=== PATIENT | female | born 1960 | race Caucasian/White ===

== ENCOUNTER 2016-08-29 17:20 | Emergency (ER) | payer OTHER, MEDICAID ==
--- NOTE | 2016-08-29 17:08 | EDPHY ---
H & P Constitutional: Initial Vital Signs Temperature (C) 36.7 C 08/29/16 17:28 Heart Rate 76 08/29/16 17:28 Respiratory Rate 20 08/29/16 17:28 Blood Pressure 133/86 H 08/29/16 17:28 O2 Sat (%) 95 08/29/16 17:28 O2 Delivery Mode Room Air Allergies/Adverse Reactions: amantadine HCl [From Symmetrel] Allergy (Verified 05/05/16 06:37) baclofen [Baclofen] Allergy (Verified 05/05/16 06:37) codeine [Codeine] Allergy (Verified 05/05/16 06:37) Penicillins Allergy (Verified 05/05/16 06:37) phenytoin sodium [From Dilantin] Allergy (Verified 05/05/16 06:37) phenytoin sodium extended [From Dilantin] Allergy (Verified 05/05/16 06:37) piperacillin sodium [From Zosyn] Allergy (Verified 05/05/16 06:37) rimantadine HCl [From Flumadine] Allergy (Verified 05/05/16 06:37) tazobactam sodium [From Zosyn] Allergy (Verified 05/05/16 06:37) Home Medications: Medication Instructions Recorded Calcium Polycarbophil [FIBERCON] 625 mg TUBE HS 05/10/15 Cholecalciferol Vit D3 [Vitamin D3 50,000 unit TUBE Q15D 05/10/15 (*)] Herbals/Supplements -Info Only 1 ea PO DAILY 05/10/15 Hydrocodone/Acetaminophen [[place] 0.5 tab TUBE ,19 05/10/15 5/325 (*)] Hydrocodone/Acetaminophen [[place] 1 tab TUBE DAILY 05/10/15 5/325 (*)] Metoprolol Tartrate [Lopressor 25 25 mg TUBE BID 05/10/15 mg (*)] Omeprazole [Prilosec 20 mg] 20 mg TUBE DAILY 05/10/15 carBAMazepine [TEGretol (*)] 100 mg TUBE 08,12 05/10/15 carBAMazepine [TEGretol (*)] 200 mg TUBE HS 05/10/15 clonazePAM [Klonopin (*)] 0.25 mg TUBE Q12 05/10/15 traZODone [traZODONE 50MG (*)] 50 mg TUBE HS PRN 05/10/15 Acetic Acid Irr Soln 0.25% 60 ml IRR MWF 10/20/15 Bisacodyl [Dulcolax] 10 mg RC DAILY PRN 10/20/15 Mag Hydrox/Al Hydrox/Simeth 30 ml TUBE TID PRN 10/20/15 [Maalox Maximum Strength Suspension] Magnesium Hydroxide [Milk of 30 ml PO DAILY PRN 10/20/15 Magnesia (*)] Menthol [Icy Hot Naturals] 1 tremaine TP PRN PRN 10/20/15 Prochlorperazine Maleate 10 mg TUBE Q6 PRN 10/20/15 [Compazine 10mg (*)] Prochlorperazine Maleate 25 mg [place] Q12 PRN 10/20/15 [Compazine 25mg supp (*)] Rizatriptan Benzoate [Rizatriptan] 10 mg TUBE Q2 PRN 10/20/15 flavoxATE HCL [Urispas] 100 mg TUBE TID 10/20/15 Acetaminophen [Tylenol 325mg (*)] 650 mg TUBE Q4 PRN #0 tab 10/23/15 levOFLOXACIN [levAQUIN] 750 mg TUBE DAILY #4 tab 10/23/15 Medical Decision Making ED Course/Re-evaluation: CHIEF COMPLAINT: Feeding tube malfunction. HISTORY OF PRESENT ILLNESS: The patient is a 56-year-old female presenting via EMS as her feeding tube has not been working since this morning. Staff at her living facility attempted unsuccessfully to unclog it and get it working. She admits having abdominal pain. She denies vomiting, diarrhea, fever, or other complaints at this time. REVIEW OF SYSTEMS: A 10 point review of systems was performed and is negative with the exception of the elements mentioned in the history of present illness. PHYSICAL EXAM: HR, BP, O2 Sat, RR. Temp noted General Appearance: Alert, well hydrated, appropriate, and non-toxic appearing. Head: Atraumatic without scalp tenderness or obvious injury Eyes: Pupils equal, round, reactive to light and accommodation, EOMI, no trauma , no injection. Ears: Clear bilaterally, no perforation, normal landmarks Nose: Atraumatic, no rhinorrhea, clear. Throat: There is no erythema or exudates, no lesions, normal tonsils, mucus membranes moist. Neck: Supple, 2+ carotid upstroke, nontender, no lymphadenopathy. Respiratory: No retractions, no distress, no wheezes, and no accessory muscle use. Lungs are clear to auscultation bilaterally. Cardiovascular: Regular rate and rhythm, no murmurs, rubs, or gallops. Bilateral carotid, radial, dorsalis pedis, and posterior tibial pulses intact. Good capillary refill all extremities. Gastrointestinal: Abdomen is soft, nontender, non-distended, no masses, no rebound, no guarding, no peritoneal signs. Feeding tube in place but not working. Musculoskeletal: Normal active ROM of all extremities, atraumatic. Neurological: Alert, appropriate, and interactive. The patient has normal DTRs and non-focal cranial nerves, motor, sensory, and cerebellar exam. Skin: No rashes, good turgor, no nodules on palpation. Past medical history:Feeding tube, hemorrhagic stroke at time of , seizure disorder. Past surgical history:Denies. Family history:Non-contributory. Social history:Lives at [facility]. DIAGNOSTICS/PROCEDURES/CRITICAL CARE TIME: DIFFERENTIAL DIAGNOSIS: MEDICAL DECISION MAKIN-year-old female presents for feeding tube malfunction. It appears to be blocked and staff at [facility] were unable to unclog it. She is complaining of generalized abdominal pain but has no other complaints. The nurse will attempt to fix the tube and she will be discharged back to her facility. 1840: No progress has been made in unplugging the tube. We will replace the whole tube. 1942: Tube has been successfully replaced. She will be discharged back to [facility]. Departure - Departure Disposition: Home, Routine, Self-Care Clinical Impression: Feeding tube blocked Qualifiers: Encounter type: initial encounter Qualified Code(s): T85.598A - Other mechanical complication of other gastrointestinal prosthetic devices, implants and grafts, initial encounter Condition: Good Instructions: How to Use and Care for Your PEG Tube (ED) Additional Instructions: Return for any other complications with your feeding tube. Referrals: Patient,NotPresent [Unknown] - As per Instructions Report Scribed for: Iron [facility] Report Scribed by: Jani Bingham Date of Report: 08/29/16 Time of Report: 17:30
[2016-08-29 17:30] VITALS: PULSE 76; RESP 20; TEMP 98.1
[2016-08-29 20:45] VITALS: BP 124/80; O2SAT 96
== END 2016-08-29 20:45 | disposition home or self-care (01) ==
LOC: EDUNIT#
DX: T85.598A Other mechanical complication of other gastrointestinal prosthetic devices, implants and grafts, initial encounter (principal); Y73.2 Prosthetic and other implants, materials and accessory gastroenterology and urology devices associated with adverse incidents

== ENCOUNTER 2016-09-17 11:13 | Inpatient (IN) | payer OTHER, MEDICAID ==
--- NOTE | 2016-09-17 11:49 | EDPHY ---
General - History Smoking Status: Never smoked Narrative: CHIEF COMPLAINT: Unable to remove Yao catheter HISTORY OF PRESENT ILLNESS: Patient says that she was sent here because they could not remove her suprapubic catheter today. She has an chronic suprapubic catheter due to neurogenic bladder. It has been in place chronically, as patient says "forever." It is changed monthly. They are unable to do so today and sent her here. She does not know the details of this and there is no documentation of this that they sent with her. She has minimal suprapubic pain. No generalized abdominal pain. No flank pain. No nausea or vomiting. REVIEW OF SYSTEMS: Ten systems reviewed and are negative unless otherwise noted in the HPI PERTINENT MEDICAL HISTORY: Neurogenic bladder and bowel EXAMINATION General Appearance: Alert, no distress Head: normocephalic, atraumatic Eyes: Pupils equal and round, no conjunctival pallor or injection ENT, Mouth: Mucous membranes moist Neck: Normal inspection, supple, non-tender Respiratory: Lungs are clear to auscultation. No wheezing, rhonchi or crackles. Cardiovascular: Regular rate and rhythm. No murmur. Gastrointestinal: Abdomen is soft and nontender. No fullness. No tympany rigidity. No flank pain. Suprapubic catheter with foul-smelling urine and purulence in the tube. No surrounding erythema. Neurological: A&O, bilateral contractures of the upper extremities. Chronic weakness of the right lower extremity. Skin: Warm and dry, no rash Extremities: Nontender. Contractures of upper extremities. Psychiatric: Mood and affect normal DIFFERENTIAL DIAGNOSES: Including but not limited to neurogenic bladder, chronic indwelling catheter, catheter dysfunction, MDM: 11:45 a.m. Patient reports that she has been [facility] due to inability to remove her suprapubic catheter. She has history of previous AVM with subsequent hemorrhage and neurogenic bladder. Suprapubic catheter is changed monthly. They were unable to do so today and sent her here. She has some mild suprapubic discomfort. No nausea or vomiting. No generalized abdominal pain. 12:05 p.m. Bladder scan shows only 45 miles. There is a strong odor about the urine. There is some purulence in the super pubic catheter. No surrounding erythema. No tenderness to palpation. Benign abdominal examination. 12:40 p.m. Notified by RN that the attempt of the suprapubic catheter have failed thus far. They suspected common of the vagina. I will assist them to determine the location of point of exit. 1:10 p.m. I personally watched the 3rd attempt of placing the suprapubic catheter. The catheter was successfully placed with good return of urine. Balloon was inflated without complication. There was no extrusion from the vagina. The catheter was then irrigated with sterile saline 40 cc which returned in the catheter bag. I then contacted the radiologist to discuss verification of placement. Dr. Farr recommended that we send the patient to IR to perform a limited cystogram to verify placement. This has been ordered. She remains stable, with no abdominal pain and in no acute distress. 2:15 p.m. Case discussed with Dr. Aguirre. The patient has been checked out to her. Please see her note for final disposition. Still awaiting the read on the cystogram. SUPERVISION: This patient was independently evaluated without direct examination by the attending physician. Case was discussed with attending physician. Case discussed with Dr. Ball (Medardo Scott) Discussion: I assumed care of this patient from MARK Sanchez, at 3:00 p.m.. We are awaiting the results of the patient's limited cystogram. Cystogram called to me by Dr. Farr. He reports that when he instilled fluid into the suprapubic catheter, patient reported that "I'm urinating" and seemed to pass fluid from her urethra. Given the fact that there was concern earlier that suprapubic catheter protruded from the patient's vagina, CT scan was ordered. CT scan was reported to me by Dr. Metzger as showing that the suprapubic catheter is in the bladder, however, when contrast is instilled contrast passes into the vagina and onto the patient's gurney. I reviewed the patient's records and discuss the patient's course with the PA from [facility], Grecia Hayward. It is unclear to me whether this vesicovaginal fistula is pre-existing. I spoke to the patient's nurse at [facility] who reports that the patient does wear depends and occasion will have leakage. I reviewed the patient's presenting complaint to the emergency department with the nursing staff. Evidently she was referred and because her suprapubic catheter was nearly out, and the patient was "gushing" fluid from below. I did discuss this patient's CT findings with Dr. Gamez, from [facility]. It sounds as if this patient's surgical repair would be quite complex and most likely would need to be performed at the [facility], at the reconstructive urologic surgical services. Patient's labs demonstrate a sodium of 123. Previous sodiums have been in the normal range. I also discussed the patient's course with Dr. Malcom Huffman. Patient will be admitted to the hospitalist service. (Lyntete Aguirre) - Objective Vital Signs: Initial Vital Signs Temperature (C) 36.6 C 09/17/16 11:47 Heart Rate 82 09/17/16 11:47 Respiratory Rate 16 09/17/16 11:47 Blood Pressure 133/83 H 09/17/16 11:47 O2 Sat (%) 95 09/17/16 11:47 O2 Delivery Mode Room Air Allergies/Adverse Reactions: amantadine HCl [From Symmetrel] Allergy (Verified 05/05/16 06:37) baclofen [Baclofen] Allergy (Verified 05/05/16 06:37) codeine [Codeine] Allergy (Verified 05/05/16 06:37) Penicillins Allergy (Verified 05/05/16 06:37) phenytoin sodium [From Dilantin] Allergy (Verified 05/05/16 06:37) phenytoin sodium extended [From Dilantin] Allergy (Verified 05/05/16 06:37) piperacillin sodium [From Zosyn] Allergy (Verified 05/05/16 06:37) rimantadine HCl [From Flumadine] Allergy (Verified 05/05/16 06:37) tazobactam sodium [From Zosyn] Allergy (Verified 05/05/16 06:37) Home Medications: Medication Instructions Recorded Calcium Polycarbophil [FIBERCON] 625 mg TUBE HS 05/10/15 Cholecalciferol Vit D3 [Vitamin D3 50,000 unit TUBE Q15D 05/10/15 (*)] Herbals/Supplements -Info Only 1 ea PO DAILY 05/10/15 Hydrocodone/Acetaminophen [[place] 0.5 tab TUBE 13,19 05/10/15 5/325 (*)] Hydrocodone/Acetaminophen [[place] 1 tab TUBE DAILY 05/10/15 5/325 (*)] Metoprolol Tartrate [Lopressor 25 25 mg TUBE BID 05/10/15 mg (*)] Omeprazole [Prilosec 20 mg] 20 mg TUBE DAILY 05/10/15 carBAMazepine [TEGretol (*)] 100 mg TUBE ,05/10/15 carBAMazepine [TEGretol (*)] 200 mg TUBE HS 05/10/15 clonazePAM [Klonopin (*)] 0.25 mg TUBE Q12 05/10/15 traZODone [traZODONE 50MG (*)] 50 mg TUBE HS PRN 05/10/15 Acetic Acid Irr Soln 0.25% 60 ml IRR MWF 10/20/15 Bisacodyl [Dulcolax] 10 mg RC DAILY PRN 10/20/15 Mag Hydrox/Al Hydrox/Simeth 30 ml TUBE TID PRN 10/20/15 [Maalox Maximum Strength Suspension] Magnesium Hydroxide [Milk of 30 ml PO DAILY PRN 10/20/15 Magnesia (*)] Menthol [Icy Hot Naturals] 1 tremaine TP PRN PRN 10/20/15 Prochlorperazine Maleate 10 mg TUBE Q6 PRN 10/20/15 [Compazine 10mg (*)] Prochlorperazine Maleate 25 mg [place] Q12 PRN 10/20/15 [Compazine 25mg supp (*)] Rizatriptan Benzoate [Rizatriptan] 10 mg TUBE Q2 PRN 10/20/15 flavoxATE HCL [Urispas] 100 mg TUBE TID 10/20/15 Acetaminophen [Tylenol 325mg (*)] 650 mg TUBE Q4 PRN #0 tab 10/23/15 levOFLOXACIN [levAQUIN] 750 mg TUBE DAILY #4 tab 10/23/15 Ciprofloxacin [Cipro] 500 mg PO BID #14 tab 09/17/16 Laboratory Results: Laboratory Results 09/17/16 17:25 09/17/16 17:25 09/17/16 09/17/16 09/17/16 18:10 17:25 17:25 WBC 8.67 10^3/uL 10^3/uL (3.80-9.50) RBC 4.16 10^6/uL L 10^6/uL (4.18-5.33) Hgb 13.3 g/dL g/dL (12.6-16.3) Hct 37.3 % L % (38.0-47.0) MCV 89.7 fL fL (81.5-99.8) MCH 32.0 pg pg (27.9-34.1) MCHC 35.7 g/dL g/dL (32.4-36.7) RDW 12.6 % % (11.5-15.2) Plt Count 264 10^3/uL 10^3/uL (150-400) MPV 9.2 fL fL (8.7-11.7) Neut % (Auto) 57.4 % % (39.3-74.2) Lymph % (Auto) 32.5 % % (15.0-45.0) [place] % (Auto) 8.4 % % (4.5-13.0) Eos % (Auto) 1.0 % % (0.6-7.6) Baso % (Auto) 0.5 % % (0.3-1.7) Nucleat RBC Rel Count 0.0 % % (0.0-0.2) Absolute Neuts (auto) 4.97 10^3/uL 10^3/uL (1.70-6.50) Absolute Lymphs (auto) 2.82 10^3/uL 10^3/uL (1.00-3.00) Absolute Monos (auto) 0.73 10^3/uL 10^3/uL (0.30-0.80) Absolute Eos (auto) 0.09 10^3/uL 10^3/uL (0.03-0.40) Absolute Basos (auto) 0.04 10^3/uL 10^3/uL (0.02-0.10) Absolute Nucleated RBC 0.00 10^3/uL 10^3/uL (0-0.01) Immature Gran % 0.2 % % (0.0-1.1) Immature Gran # 0.02 10^3/uL 10^3/uL (0.00-0.10) VBG Lactic Acid 0.7 mmol/L mmol/L (0.7-2.1) Sodium 123 mEq/L L mEq/L (134-144) Potassium 3.9 mEq/L mEq/L (3.5-5.2) Chloride 92 mEq/L L mEq/L (97-110) Carbon Dioxide 23 mEq/l mEq/l (22-31) Anion Gap 8 mEq/L mEq/L (8-16) BUN 7 mg/dL mg/dL (7-23) Creatinine 0.3 mg/dL L mg/dL (0.6-1.0) Estimated GFR > 60 Glucose 92 mg/dL mg/dL (70-100) Calcium 9.3 mg/dL mg/dL (8.5-10.4) Urine Color Urine Appearance Urine pH Ur Specific Squires Urine Protein Urine Ketones Urine Blood Urine Nitrate Urine Bilirubin Urine Urobilinogen Ur Leukocyte Esterase Urine RBC Urine WBC Ur Epithelial Cells Urine Bacteria Urine Mucus Ur Culture Indicated? Urine Glucose 09/17/16 13:20 WBC RBC Hgb Hct MCV MCH MCHC RDW Plt Count MPV Neut % (Auto) Lymph % (Auto) [place] % (Auto) Eos % (Auto) Baso % (Auto) Nucleat RBC Rel Count Absolute Neuts (auto) Absolute Lymphs (auto) Absolute Monos (auto) Absolute Eos (auto) Absolute Basos (auto) Absolute Nucleated RBC Immature Gran % Immature Gran # VBG Lactic Acid Sodium Potassium Chloride Carbon Dioxide Anion Gap BUN Creatinine Estimated GFR Glucose Calcium Urine Color PALE YELLOW Urine Appearance HAZY Urine pH 6.0 (5.0-7.5) Ur Specific [place] 1.005 (1.002-1.030) Urine Protein 2+ H (NEGATIVE) Urine Ketones NEGATIVE (NEGATIVE) Urine Blood 2+ H (NEGATIVE) Urine Nitrate NEGATIVE (NEGATIVE) Urine Bilirubin NEGATIVE (NEGATIVE) Urine Urobilinogen NEGATIVE EU EU (0.2-1.0) Ur Leukocyte Esterase TRACE H (NEGATIVE) Urine RBC 50-182 /hpf H /hpf (0-3) Urine WBC 10-15 /hpf H /hpf (0-3) Ur Epithelial Cells NONE SEEN /lpf /lpf (NONE-1+) Urine Bacteria TRACE /hpf H /hpf (NONE SEEN) Urine Mucus TRACE /lpf /lpf (NONE-1+) Ur Culture Indicated? INDICATED H (NI) Urine Glucose NEGATIVE (NEGATIVE) Departure - Departure Disposition: [facility] Inpatient Acute Clinical Impression: Neurogenic bladder, Vesicovaginal fistula, Hyponatremia Condition: Fair
[2016-09-17] MEDS ORDERED: IOTHALAMATE MEG (CYSTO-CONRAY II) 250 ML VIAL BLADIN ONE (13:13)
[2016-09-17 13:49] LABS: COLOR PALE YELLOW; LEUKOCYTE ESTERASE,URINE TRACE (NEGATIVE); NITRITE,URINE NEGATIVE (NEGATIVE)
[2016-09-17 13:57] LABS: BACTERIA TRACE /hpf (NONE SEEN); MUCUS TRACE /lpf (NONE-1+); RBC,URINE 50-182 /hpf (0-3)
[2016-09-17 17:34] LABS: % IMMATURE GRANULYOCYTES 0.2 % (0.0-1.1); ABSOLUTE IMMATURE GRANULOCYTES 0.02 10^3/uL (0.00-0.10); ADD DIFF? NO; ADD MORPH? NO; ADD SCAN? NO; ATYPICAL LYMPHOCYTE FLAG 10 (0-99); FRAGMENT RBC FLAG 0 (0-99); HEMATOCRIT 37.3 % (38.0-47.0); HEMOGLOBIN 13.3 g/dL (12.6-16.3); LEFT SHIFT FLG 0 (0-99); LIPEMIA HEMOLYSIS FLAG 90 (0-99); MEAN CELL HEMOGLOBIN CONCENTR. 35.7 g/dL (32.4-36.7); MEAN CELL VOLUME 89.7 fL (81.5-99.8); MEAN PLATELET VOLUME 9.2 fL (8.7-11.7); PLATELET CLUMPS FLAG 0 (0-99); PLATELET COUNT 264 10^3/uL (150-400); RED BLOOD CELL COUNT 4.16 10^6/uL (4.18-5.33); RED CELL DISTRIBUTION WIDTH 12.6 % (11.5-15.2)
[2016-09-17 17:49] LABS: ANION GAP 8 mEq/L (8-16); CALCIUM 9.3 mg/dL (8.5-10.4); CARBON DIOXIDE 23 mEq/l (22-31); CHLORIDE 92 mEq/L (97-110); CREATININE 0.3 mg/dL (0.6-1.0); GLOMERULAR FILTRATION RATE > 60; GLUCOSE 92 mg/dL (70-100); POTASSIUM 3.9 mEq/L (3.5-5.2); SODIUM 123 mEq/L (134-144)
[2016-09-17] MEDS ORDERED: NS 500 ML IV ONE (18:50)
[2016-09-17] MEDS ORDERED: ACETAMINOPHEN 325 MG TAB TUBE PRN ×2 (19:06→20:29)
[2016-09-17] MEDS ORDERED: ONDANSETRON 4 MG/2 ML VIAL IVP PRN (19:06)
--- NOTE | 2016-09-17 19:37 | GHP ---
[f rep st] HISTORY AND PHYSICAL DATE OF ADMISSION: 09/17/2016 CHIEF COMPLAINT: Leaking urine. HISTORY OF PRESENT ILLNESS: This is a 56-year-old female who was sent in from [facility] with history of hemorrhagic stroke at childbirth complicated by seizure disorder, dysphagia, neurogenic bowel and bladder. She was brought in after she was noted to be leaking urine. She was found to have a nonfunctioning suprapubic catheter. In the emergency department, a CT of the pelvis was done that showed a replaced suprapubic catheter as well as contrast extravasating from the bladder to the vagina consistent with a vesicovaginal fistula. The patient tells me she has been tired and dizzy the past few days. She is n.p.o. and has G-tube in place. She denies drinking copious amounts of water. On incidental lab workup, she was found to have a sodium of 123 and does not have a prior history of hyponatremia. PAST MEDICAL HISTORY: 1. Hemorrhagic stroke at the time of childbirth with subsequent seizure disorder, dysphagia, neurogenic bowel and bladder with suprapubic catheter. 2. Type 2 diabetes mellitus. HOME MEDICATIONS: Reviewed. Refer to [facility] for details. ALLERGIES: Amantadine, baclofen, codeine, penicillin, Dilantin, Zosyn, and rimantadine. SOCIAL HISTORY: She resides at [facility]. There is no history of alcohol, tobacco, or illicit drug use. FAMILY HISTORY: Reviewed and noncontributory. REVIEW OF SYSTEMS: Comprehensive 10-point review of systems was done and is negative, except for as mentioned in the HPI. PHYSICAL EXAM: VITAL SIGNS: Blood pressure 117/70, pulse 76, respiratory rate 18, O2 saturation 98% on room air. Temperature afebrile. GENERAL: No acute distress. HEAD: Normocephalic, atraumatic. Eyes are PERRLA. Sclerae anicteric. MOUTH: Moist mucous membranes. NECK: Supple. No lymphadenopathy. CARDIOVASCULAR: S1-S2 no JVD. No lower extremity edema. PULMONARY: Lungs are clear. No wheezes, rales, or rhonchi. ABDOMEN: Soft, nontender, nondistended. No guarding or rebound tenderness. Normoactive bowel sounds. EXTREMITIES: No clubbing or cyanosis. NEURO: Cranial nerves 2-12 grossly intact. SKIN: Clear, no rashes. DIAGNOSTICS: WBC is 8.67, hemoglobin 13.3, hematocrit 37.3, platelets 264. Sodium 123, potassium 3.9, chloride 92, CO2 23, BUN 7, creatinine 0.3, glucose 92, UA 2+ protein, 2+ blood, trace leukocyte esterase. CT of the pelvis demonstrated a vesicovaginal fistula. ASSESSMENT AND PLAN: This is a 56-year-old female with history of hemorrhagic stroke with subsequent neurogenic bowel and bladder who was brought to the emergency department from [facility] after she was found to be leaking urine with a nonfunctioning suprapubic catheter. 1. Hyponatremia that appears to be symptomatic. Differential diagnosis includes water intoxication versus SIADH versus hypovolemia. 2. Vesicovaginal fistula. 3. History of dysphagia. 4. Pyuria Without signs of overt infection PLAN: 1. Admit to the medical surgical floor. 2. Fluid restriction. 3. Urine sodium, osmolality, TSH. 4. I discussed case with Dr. John Vines from Urology who will see the patient in consultation tomorrow 5. Close monitoring of serum sodium levels to ensure she is not rapidly correcting. 6. monitor off of antibiotics The patient will be admitted to the hospital under inpatient status. She requests to be full code. /[id number]/MODL MTDD
[2016-09-17] MEDS ORDERED: HYDROCODONE/APAP 5/325 TAB TUBE PRN (20:29)
[2016-09-17] MEDS ORDERED: PROCHLORPERAZINE MALEATE 10 MG TAB TUBE PRN (20:29)
[2016-09-17] MEDS ORDERED: MAGNESIUM HYDROXIDE 30 ML UDCUP TUBE PRN (20:29)
[2016-09-17] MEDS ORDERED: guaiFENesin 200 MG/10 ML UDCUP TUBE PRN (20:29)
[2016-09-17] MEDS ORDERED: MENTHOL TP PRN (20:29)
[2016-09-17] MEDS ORDERED: MAG HYDROX/AL HYDROX/SIMETH 30 ML UDCUP TUBE PRN (21:00)
[2016-09-18] MEDS: traZODone 50 MG TAB TUBE PRN (00:39)
[2016-09-18] MEDS: clonazePAM 0.5 MG TAB TUBE SCH ×3 (00:39→21:31)
[2016-09-18] MEDS: ESCITALOPRAM OXALATE 10 MG TAB TUBE SCH ×2 (00:39→21:32)
[2016-09-18] MEDS: METOPROLOL TARTRATE 25 MG TAB TUBE SCH ×3 (00:40→21:31)
[2016-09-18] MEDS ORDERED: ACETAMINOPHEN 650 MG/20.3 ML UDCUP TUBE PRN (00:40)
[2016-09-18] MEDS: CARBAMAZEPINE 100 MG CHEWABLE TAB PO SCH ×4 (01:07→21:32)
[2016-09-18 03:16] LABS: ANION GAP 11 mEq/L (8-16); CALCIUM 8.9 mg/dL (8.5-10.4); CARBON DIOXIDE 22 mEq/l (22-31); CHLORIDE 95 mEq/L (97-110); CREATININE 0.3 mg/dL (0.6-1.0); GLOMERULAR FILTRATION RATE > 60; GLUCOSE 145 mg/dL (70-100); POTASSIUM 3.8 mEq/L (3.5-5.2); SODIUM 128 mEq/L (134-144)
[2016-09-18 07:01] LABS: ANION GAP 9 mEq/L (8-16); CARBON DIOXIDE 25 mEq/l (22-31); CHLORIDE 98 mEq/L (97-110); CREATININE 0.3 mg/dL (0.6-1.0); GLOMERULAR FILTRATION RATE > 60; GLUCOSE 118 mg/dL (70-100); POTASSIUM 4.1 mEq/L (3.5-5.2); SODIUM 132 mEq/L (134-144)
[2016-09-18] MEDS: SOLIFENACIN SUCCINATE 5 MG TAB PO SCH (09:24)
[2016-09-18] MEDS: HYDROCODONE/APAP 5/325 TAB TUBE SCH ×3 (09:24→21:33)
[2016-09-18] MEDS: ENOXAPARIN 40 MG/0.4 ML SYR SC SCH (10:12)
--- NOTE | 2016-09-18 12:06 | HOSPPROG ---
Hospitalist Progress Note Assessment/Plan: # acute hyponatremia- suspect hypovolemic- sodium 123 at presentation, patient received 500 cc normal saline on admission- sodium 132 this a.m. oxygen saturations 94% on room air - continue gentle hydration - continue tube feeds # New Vesicovaginal fistula- CT pelvis (personally reviewed and interpreted) shows new vesicovaginal fistula - Dr. Vines from Urology consulted overnight - suprapubic catheter in place - continue supportive care # diabetes- blood sugars well controlled 92-145 - continue monitoring # seizure disorder- no active seizures - continue home medications # diet- patient presents with PEG tube- will have speech therapy evaluate- continue tube feeds and IV fluids # prophylaxis Lovenox # disposition greater than 2 midnights as the patient is presenting with acute hyponatremia and a new diagnosis of vesicular vaginal fistula requiring workup I have discussed the case with the RN- we will increase fluid resuscitation today Subjective: feels dehydrated Objective: Vital Signs Temp Pulse Resp BP Pulse Ox 36.8 C 84 18 113/69 95 09/18/16 08:00 09/18/16 08:00 09/18/16 08:00 09/18/16 08:00 09/18/16 08:00 Laboratory Results 09/18/16 06:30 09/17/16 09/18/16 09/19/16 05:59 05:59 05:59 Intake Total 1315 Output Total 850 Balance 465 - Physical Exam Constitutional: chronically ill appearing Eyes: anicteric sclera Ears, Nose, Mouth, Throat: dry mucous membranes Cardiovascular: regular rate and rhythym Respiratory: no respiratory distress, no rales or rhonchi Gastrointestinal: normoactive bowel sounds, soft, non-tender abdomen Genitourinary: no bladder fullness Skin: warm Musculoskeletal: No asymmetric calves Neurologic: No AAOx3 Psychiatric: No agitated Lymph, Heme, Immunologic: no cervical LAD ICD10 Worksheet Patient Problems: Problems Problem Status Onset Hyponatremia Acute Neurogenic bladder Acute Vesicovaginal fistula Acute Fever Acute Gastrostomy tube dysfunction Acute Sepsis Acute Urinary tract infection Acute
[2016-09-18] MEDS ORDERED: BISACODYL 10 MG SUPP PR PRN (12:10)
[2016-09-18] MEDS ORDERED: NS 1,000 ML IV SCH ×2 (12:15)
[2016-09-19 10:15] LABS: ANION GAP 8 mEq/L (8-16); CALCIUM 8.8 mg/dL (8.5-10.4); CARBON DIOXIDE 24 mEq/l (22-31); CHLORIDE 99 mEq/L (97-110); CREATININE 0.3 mg/dL (0.6-1.0); GLOMERULAR FILTRATION RATE > 60; GLUCOSE 126 mg/dL (70-100); POTASSIUM 4.3 mEq/L (3.5-5.2); SODIUM 131 mEq/L (134-144)
[2016-09-19] MEDS: METOPROLOL TARTRATE 25 MG TAB TUBE SCH ×2 (10:15→21:33)
[2016-09-19] MEDS: CARBAMAZEPINE 100 MG CHEWABLE TAB PO SCH ×3 (10:15→20:13)
[2016-09-19] MEDS: HYDROCODONE/APAP 5/325 TAB TUBE SCH ×3 (10:16→18:31)
[2016-09-19] MEDS: clonazePAM 0.5 MG TAB TUBE SCH ×2 (10:17→21:32)
[2016-09-19] MEDS: SOLIFENACIN SUCCINATE 5 MG TAB PO SCH (10:17)
[2016-09-19] MEDS: ENOXAPARIN 40 MG/0.4 ML SYR SC SCH (10:19)
--- NOTE | 2016-09-19 15:04 | HOSPPROG ---
Hospitalist Progress Note Assessment/Plan: # acute hyponatremia- suspect hypovolemic- sodium 123 -> 132 morning after admission- lost access and IV fluids - now 131 baseline sodiums on chart review are normal oxygen saturations 100% on room air - re-established access - restart normal saline at 150 cc/hour - recheck sodium in a.m. - continue tube feeds with free water boluses # New Vesicovaginal fistula- cytogram (personally reviewed and interpreted) indeterminate for possible fistula CT abd - confirmed vesicovaginal fistula - Dr. Vines from Urology consulted on admit - suprapubic catheter in place - continue supportive care # diabetes- blood sugars well controlled 92-150 - continue monitoring # seizure disorder- no active seizures - continue home medications # diet- patient presents with PEG tube- will have speech therapy evaluate- continue tube feeds and IV fluids # prophylaxis Lovenox # disposition greater than 2 midnights as the patient is presenting with acute hyponatremia and a new diagnosis of vesicular vaginal fistula requiring workup I have discussed the case with the RN- re-established vascular access today in aggressively fluid resuscitate with the goal of normal sodium in a.m. Subjective: denies pain Objective: Vital Signs Temp Pulse Resp BP Pulse Ox 36.4 C 69 14 122/79 H 100 09/19/16 14:58 09/19/16 14:58 09/19/16 14:58 09/19/16 14:58 09/19/16 14:58 Laboratory Results 09/19/16 09:31 09/18/16 09/19/16 09/20/16 05:59 05:59 05:59 Intake Total 1315 1124 Output Total 850 850 850 Balance 465 -850 274 - Physical Exam Constitutional: chronically ill appearing Eyes: anicteric sclera Ears, Nose, Mouth, Throat: dry mucous membranes Cardiovascular: regular rate and rhythym Respiratory: no respiratory distress, no rales or rhonchi Gastrointestinal: normoactive bowel sounds, soft, non-tender abdomen Genitourinary: no bladder fullness Skin: warm, normal color Musculoskeletal: No asymmetric calves Neurologic: No AAOx3 Psychiatric: interacting appropriately, No agitated Lymph, Heme, Immunologic: no cervical LAD ICD10 Worksheet Patient Problems: Problems Problem Status Onset Hyponatremia Acute Neurogenic bladder Acute Vesicovaginal fistula Acute Fever Acute Gastrostomy tube dysfunction Acute Sepsis Acute Urinary tract infection Acute
[2016-09-19] MEDS: NS 1,000 ML IV SCH ×2 (16:12→21:44)
[2016-09-19] MEDS: ESCITALOPRAM OXALATE 10 MG TAB TUBE SCH (21:32)
[2016-09-19] MEDS: traZODone 50 MG TAB TUBE PRN (21:33)
[2016-09-20] MEDS: NS 1,000 ML IV SCH ×2 (04:11→11:27)
[2016-09-20 05:22] LABS: ANION GAP 5 mEq/L (8-16); CALCIUM 8.1 mg/dL (8.5-10.4); CARBON DIOXIDE 24 mEq/l (22-31); CHLORIDE 102 mEq/L (97-110); CREATININE 0.3 mg/dL (0.6-1.0); GLOMERULAR FILTRATION RATE > 60; GLUCOSE 115 mg/dL (70-100); POTASSIUM 4.1 mEq/L (3.5-5.2); SODIUM 131 mEq/L (134-144)
[2016-09-20 08:32] VITALS: BP 128/74; PULSE 97; RESP 18; TEMP 98.2; O2SAT 95
[2016-09-20] MEDS: clonazePAM 0.5 MG TAB TUBE SCH (08:42)
[2016-09-20] MEDS: HYDROCODONE/APAP 5/325 TAB TUBE SCH ×2 (08:44→12:52)
[2016-09-20] MEDS: CARBAMAZEPINE 100 MG CHEWABLE TAB PO SCH ×2 (08:45→12:52)
[2016-09-20] MEDS: SOLIFENACIN SUCCINATE 5 MG TAB PO SCH (08:45)
[2016-09-20] MEDS: METOPROLOL TARTRATE 25 MG TAB TUBE SCH (08:45)
[2016-09-20] MEDS: ENOXAPARIN 40 MG/0.4 ML SYR SC SCH (08:47)
--- NOTE | 2016-09-20 12:26 | PDIAF ---
- Diagnosis Diagnosis: dehydration Code Status: Full Code - Medication Management Discharge Medications: Medications to Continue on Transfer Calcium Polycarbophil [FIBERCON] 625 mg TUBE HS 05/10/15 [Last Taken 05/10/15 08 :00] Cholecalciferol Vit D3 [Vitamin D3 (*)] 50,000 unit TUBE Q15D 05/10/15 [Last Taken 10/09/15] Herbals/Supplements -Info Only 1 ea TUBE DAILY 05/10/15 [Last Taken Unknown] Hydrocodone/Acetaminophen [[place] 5/325 (*)] 0.5 tab TUBE 05/10/15 [Last Taken 05/09/15] Hydrocodone/Acetaminophen [[place] 5/325 (*)] 1 tab TUBE DAILY 05/10/15 [Last Taken 05/10/15 08:00] Metoprolol Tartrate [Lopressor 25 mg (*)] 25 mg TUBE BID 05/10/15 [Last Taken 08:00] Omeprazole [Prilosec 20 mg] 20 mg TUBE DAILY 05/10/15 [Last Taken 05/10/15 08:00 ] carBAMazepine [TEGretol (*)] 100 mg TUBE 05/10/15 [Last Taken 05/10/15 08: 00] carBAMazepine [TEGretol (*)] 200 mg TUBE HS 05/10/15 [Last Taken 05/09/15] clonazePAM [Klonopin (*)] 0.25 mg TUBE Q12 05/10/15 [Last Taken 05/10/15 08:00] traZODone [traZODONE 50MG (*)] 50 mg TUBE HS PRN 05/10/15 [Last Taken 05/08/15] Acetic Acid Irr Soln 0.25% 60 ml IRR MWF 10/20/15 [Last Taken Unknown] Bisacodyl [Dulcolax] 10 mg RC DAILY PRN 10/20/15 [Last Taken Unknown] Mag Hydrox/Al Hydrox/Simeth [Maalox Maximum Strength Suspension] 30 ml TUBE TID PRN 10/20/15 [Last Taken Unknown] Magnesium Hydroxide [Milk of Magnesia (*)] 30 ml TUBE DAILY PRN 10/20/15 [Last Taken Unknown] Menthol [Icy Hot Naturals] 1 tremaine TP PRN PRN 10/20/15 [Last Taken Unknown] Prochlorperazine Maleate [Compazine 10mg (*)] 10 mg TUBE Q6 PRN 10/20/15 [Last Taken Unknown] Prochlorperazine Maleate [Compazine 25mg supp (*)] 25 mg [place] Q12 PRN 10/20/15 [ Last Taken Unknown] Acetaminophen [Tylenol 325mg (*)] 650 mg TUBE Q4 PRN #0 tab 10/23/15 [Last Taken Unknown] Escitalopram Oxalate [Lexapro 10 MG] 10 mg TUBE HS 09/17/16 [Last Taken Unknown] Guaifenesin [Tussin] 100 mg TUBE Q6 PRN 09/17/16 [Last Taken Unknown] Hydrocodone/APAP 5/325 [[place] 5/325 (*)] 0.5 each TUBE Q4 PRN 09/17/16 [Last Taken Unknown] Multivitamins W-Minerals [Thera M Plus Tablet (*)] 1 each TUBE DAILY 09/17/16 [ Last Taken Unknown] Solifenacin Succinate [Vesicare 5 MG (*)] 5 mg TUBE DAILY 09/17/16 [Last Taken Unknown] Discharge Medications: Refer to the Discharge Home Medication list for PRN reason. - Orders Services needed: Registered Nurse, Physical Therapy, Occupational Therapy Diet Texture: Dysphagia 2 - Mechanically Altered - Chopped, Ground, Thin Liquids , Meds Whole in Puree Tube feeding: jevity 1.5 at 65cc/hr continuous except around meals - 250cc - Labs/Radiology BMP Date: 09/26/16 (weekly to follow sodium) - Follow Up Care Current Providers and Referrals: Saúl Saab MD [Medical Doctor] - As per Instructions Patient,NotPresent [Unknown] - As per Instructions John Vines MD [Medical Doctor] -
--- NOTE | 2016-09-20 19:53 | GDS ---
[f rep st] DISCHARGE SUMMARY DISCHARGE DIAGNOSES: Include: 1. Hyponatremia, secondary to hypovolemia. 2. New vesicovaginal fistula. 3. History of hemorrhagic stroke at , with subsequent seizure disorder, dysphagia, neurogenic bladder. 4. Neurogenic bladder, with suprapubic catheter. 5. Type 2 diabetes. HISTORY OF PRESENT ILLNESS: A 56-year-old female with a history of hemorrhagic stroke at comp licated by a chronic seizure disorder, dysphagia, and neurogenic bowel and bladder. The patient was brought to the hospital with complaints of leaking urine. For details of patient's initial present ation, please see the history and physical dated 09/17/2016. CONSULTATIVE SERVICES: Include Urology, Dr. Vines. PROCEDURES: On 09/17/2016, she had a pelvis CT that confirmed a vesicovaginal fistula. HOSPITAL COURSE: By issue: 1. New vesicovaginal fistula. Patient's imaging was reviewed, and case discussed with Dr. Vines. He would like to see the patient in the outpatient clinic, so he can perform cystoscopy and accurate physical examination to determine where her fistula is, and provide recommendations on intervention or not at that time. The patient's suprapubic catheter was changed during this hospital stay, and is functioning normally at the time of disposition. 2. Hypovolemic hyponatremia. The patient requires great encouragement for oral intake. She does h ave a G-tube, which she is provided tube feeds in the evenings. During her hospital stay, we initia emilio tube feeds, encouraged p.o., and fluid resuscitated. We had improvement in her sodium from 123 to 132 after hydration. I suspect were seeing chronic contraction in the correction. As she does not initiate either food or oral fluid intake on her own, we are discharging with recommendations t hat the patient have continuous tube feeds at disposition for a period of time, including q.6 water boluses. I have additionally encouraged the patient to take as much oral intake at meals as she can upon returning to her correction. 3. Neurogenic bladder. The patient has a suprapubic catheter. As above, [facility]. 4. Diabetes. The patient's glycemic control was stable on her home medications. No changes were m hernandez to her regimen. DISCHARGE MEDICATIONS: Please reference medication reconciliation printed on 09/20/2016. FOLLOWUP APPOINTMENTS: Include with [facility] physician. We recommend weekly sodium checks until complete normalization of her fluid status. PENDING STUDIES: At the time of this dictation are none. I spent greater than 30 minutes in the planning and coordination of this discharge. /[id number]/MODL
== END 2016-09-20 18:32 | DRG 760 ==
LOC: EDUNIT# → OBSVTOIN 19:06 → F3E 20:37
PROVIDERS: ADMIT Family Medicine; ATTEND Hospitalist
DX: N82.0 Vesicovaginal fistula (principal); E87.1 Hypo-osmolality and hyponatremia; E86.1 Hypovolemia; K59.2 Neurogenic bowel, not elsewhere classified; N31.9 Neuromuscular dysfunction of bladder, unspecified; E11.9 Type 2 diabetes mellitus without complications; G40.909 Epilepsy, unspecified, not intractable, without status epilepticus; I69.391 Dysphagia following cerebral infarction
CPT/HCPCS: 92526-GN; 92610-GN; 97163-GP; G8978-GP-CN; G8979-GP-CN; G8980-GP-CN; G8996-GN-CL; G8997-GN-CL; J1650; Q9961

== ENCOUNTER 2016-10-14 02:43 | Emergency (ER) | payer OTHER, MEDICAID ==
[2016-10-14] MEDS ORDERED: IOPAMIDOL (ISOVUE-300) 100 ML BTL IV ONE (03:19)
--- NOTE | 2016-10-14 03:24 | EDPHY ---
H & P Time Seen by Provider: 10/14/16 02:51 HPI/ROS: CHIEF COMPLAINT: Suprapubic catheter clock HISTORY OF PRESENT ILLNESS: Patient is a 56-year-old female who comes from the [facility] because they were unable to flush her suprapubic catheter. She has a history of hemorrhagic stroke at with subsequent seizure disorder, dysphasia and neurogenic bladder with suprapubic catheter and feeding tube. She was admitted a month ago here and was found have a new vesicovaginal fistula as well. This has been followed up by Dr. Vines. This suprapubic catheter was replaced during that hospitalization. She has no complaints but was sent here when the nurses were unable to flush her catheter at the alf. REVIEW OF SYSTEMS: Unable to obtain secondary to condition EXAM: GENERAL: thin HEAD: Atraumatic, normocephalic. EYES: Pupils equal round and reactive to light, extraocular movements intact, sclera anicteric, conjunctiva are normal. ENT: facial deformities, TMs normal, nares patent, oropharynx clear without exudates. Moist mucous membranes. NECK: Normal range of motion, supple without lymphadenopathy or JVD. LUNGS: Breath sounds clear to auscultation bilaterally and equal. No wheezes rales or rhonchi. HEART: Regular rate and rhythm without murmurs, rubs or gallops. ABDOMEN: Soft, nontender, normoactive bowel sounds. No guarding, no rebound. No masses appreciated. BACK: No CVA tenderness, no spinal tenderness, step-offs or deformities EXTREMITIES: Moving all extremities, some contractions NEUROLOGICAL: Normal speech, 5/5 strength, baseline movement in all extremities, normal sensation PSYCH: Asking questions, laughing SKIN: Warm, dry, normal turgor, no visible rashes or lesions. Source: Patient Exam Limitations: No limitations - Medical/Surgical History Hx Asthma: No Hx Chronic Respiratory Disease: No Hx Diabetes: No Hx Cardiac Disease: Yes Hx Renal Disease: No Hx Cirrhosis: No Hx Alcoholism: No Hx HIV/AIDS: No Hx Splenectomy or Spleen Trauma: No Other PMH: depressive disorder, CVA, Seizures, HTN, intracerebral hemorrhage, dysphagia, dysarthia, dementia, gait abnormality, constipation, iron deficiency anemia, migraines, vitamin D deficiency, neurogenic bladder and bowel - Family History Significant Family History: No pertinent family hx - Social History Smoking Status: Never smoked Alcohol Use: None Drug Use: None Constitutional: Initial Vital Signs Temperature (C) 36.8 C 10/14/16 03:00 Heart Rate 65 10/14/16 03:00 Respiratory Rate 18 10/14/16 03:00 Blood Pressure 126/74 H 10/14/16 03:00 O2 Sat (%) 94 10/14/16 03:00 O2 Delivery Mode Room Air Allergies/Adverse Reactions: amantadine HCl [From Symmetrel] Allergy (Verified 05/05/16 06:37) baclofen [Baclofen] Allergy (Verified 05/05/16 06:37) codeine [Codeine] Allergy (Verified 05/05/16 06:37) Penicillins Allergy (Verified 05/05/16 06:37) phenytoin sodium [From Dilantin] Allergy (Verified 05/05/16 06:37) phenytoin sodium extended [From Dilantin] Allergy (Verified 05/05/16 06:37) piperacillin sodium [From Zosyn] Allergy (Verified 05/05/16 06:37) rimantadine HCl [From Flumadine] Allergy (Verified 05/05/16 06:37) tazobactam sodium [From Zosyn] Allergy (Verified 05/05/16 06:37) Home Medications: Medication Instructions Recorded Calcium Polycarbophil [FIBERCON] 625 mg TUBE HS 05/10/15 Cholecalciferol Vit D3 [Vitamin D3 50,000 unit TUBE Q15D 05/10/15 (*)] Herbals/Supplements -Info Only 1 ea TUBE DAILY 05/10/15 Hydrocodone/Acetaminophen [[place] 0.5 tab TUBE 05/10/15 5/325 (*)] Hydrocodone/Acetaminophen [[place] 1 tab TUBE DAILY 05/10/15 5/325 (*)] Metoprolol Tartrate [Lopressor 25 25 mg TUBE BID 05/10/15 mg (*)] Omeprazole [Prilosec 20 mg] 20 mg TUBE DAILY 05/10/15 carBAMazepine [TEGretol (*)] 100 mg TUBE 08,05/10/15 carBAMazepine [TEGretol (*)] 200 mg TUBE HS 05/10/15 clonazePAM [Klonopin (*)] 0.25 mg TUBE Q12 05/10/15 traZODone [traZODONE 50MG (*)] 50 mg TUBE HS PRN 05/10/15 Acetic Acid Irr Soln 0.25% 60 ml IRR MWF 10/20/15 Bisacodyl [Dulcolax] 10 mg RC DAILY PRN 10/20/15 Mag Hydrox/Al Hydrox/Simeth 30 ml TUBE TID PRN 10/20/15 [Maalox Maximum Strength Suspension] Magnesium Hydroxide [Milk of 30 ml TUBE DAILY PRN 10/20/15 Magnesia (*)] Menthol [Icy Hot Naturals] 1 tremaine TP PRN PRN 10/20/15 Prochlorperazine Maleate 10 mg TUBE Q6 PRN 10/20/15 [Compazine 10mg (*)] Prochlorperazine Maleate 25 mg [place] Q12 PRN 10/20/15 [Compazine 25mg supp (*)] Acetaminophen [Tylenol 325mg (*)] 650 mg TUBE Q4 PRN #0 tab 10/23/15 Escitalopram Oxalate [Lexapro 10 10 mg TUBE HS 09/17/16 MG] Hydrocodone/APAP 5/325 [[place] 0.5 each TUBE Q4 PRN 09/17/16 5/325 (*)] Multivitamins W-Minerals [Thera M 1 each TUBE DAILY 09/17/16 Plus Tablet (*)] Solifenacin Succinate [Vesicare 5 5 mg TUBE DAILY 09/17/16 MG (*)] guaiFENesin [Tussin] 100 mg TUBE Q6 PRN 09/17/16 Medical Decision Making - Diagnostics Imaging Results: X-ray: KUB was obtained. I viewed the images myself on the PACS system. My interpretation of the images is: Normally feeling bladder. The radiologist interpretation is pending. Procedures: On bedside ultrasound the patient suprapubic catheter appears to be in place but the bladder is contracted. This was removed and a new one replaced which flashes easily and appears to drain urine. I will obtain a KUB with contrast. ED Course/Re-evaluation: I replaced the patient's Yao. On KUB with contrast appears to be in good placement. This is done under ultrasound guidance. The patient tolerated procedure well. We will let her return to the nursing at this point. She has no other complaints. Differential Diagnosis: Partial list of the Differential diagnosis considered include but were not limited to; catheter obstruction, urinary tract infection and although unlikely based on the history and physical exam, I also considered rupture, intestinal perforation, abscess, peritonitis. I discussed these differential diagnoses and the plan with the patient as well as the usual and expected course. The patient understands that the diagnosis is provisional and that in medicine we are not always correct and that further workup is often warranted. Usual and customary warnings were given. All of the patient's questions were answered. The patient was instructed to return to the emergency department should the symptoms at all worsen or return, otherwise to followup with the physician as we discussed. Departure - Departure Disposition: Home, Routine, Self-Care Clinical Impression: Vesicovaginal fistula Suprapubic catheter dysfunction Qualifiers: Encounter type: initial encounter Qualified Code(s): T83.010A - Breakdown ( mechanical) of cystostomy catheter, initial encounter Condition: Fair Instructions: How to Care for Your Suprapubic Catheter (ED) Referrals: COLT PRIETO [Primary Care Provider] - As per Instructions
[2016-10-14 03:32] VITALS: RESP 18
[2016-10-14 04:01] VITALS: BP 142/88; PULSE 78; TEMP 98.6; O2SAT 95
== END 2016-10-14 03:59 | disposition home or self-care (01) ==
LOC: EDUNIT#
DX: N82.0 Vesicovaginal fistula (principal); T83.010A Breakdown (mechanical) of cystostomy catheter, initial encounter; I10 Essential (primary) hypertension; Z86.73 Personal history of transient ischemic attack (TIA), and cerebral infarction without residual deficits; Y82.8 Other medical devices associated with adverse incidents
CPT/HCPCS: 74000; 99283; Q9967

== ENCOUNTER 2016-12-29 07:07 | Emergency (ER) | payer OTHER, MEDICAID ==
--- NOTE | 2016-12-29 07:09 | EDPHY ---
HPI/HX/ROS/PE/MDM Narrative: CHIEF COMPLAINT: Suprapubic catheter needs to be flushed HPI: The patient is a 56-year-old female, brought in by EMS from [facility] to have her suprapubic catheter flushed. The patient has a history of hemorrhagic stroke at with subsequent seizure disorder, dysphasia, and neurogenic bladder with suprapubic catheter and feeding tube. Staff at patient' s assisted were unable to flush patient's catheter today. Vitals were normal in the field. Patient has DNR. Patient denies any complaints. REVIEW OF SYSTEMS: Aside from elements discussed in the HPI, a comprehensive 10-point review of systems was reviewed and is negative. PMH: Depressive disorder, CVA, Seizures, HTN, Intracerebral hemorrhage, Dysphagia, Dysarthria, Dementia, Gait abnormality, Constipation, Iron deficiency anemia, Migraines, Vitamin D deficiency, Neurogenic bladder and bowel. SOCIAL HISTORY: Resides at [facility]. PHYSICAL EXAM: General: Patient is alert, in no acute distress. ENT: Eyes are normal to inspection. ENT inspection normal. Neck: Normal inspection. Full range of motion. Respiratory: No respiratory distress. Breath sounds normal bilaterally. Cardiovascular: Regular rate and rhythm. Strong peripheral pulses. Abdomen: The abdomen is nontender to palpation. A suprapubic catheter is in place. There is leakage of urine around the os. Skin: Normal color. No rash. Warm and dry. Extremities: Contractures of upper extremities. Neuro: Speech abnormality. Bilateral contractures of upper extremities, chronic weakness right lower extremity. Portions of this note were transcribed by a medical lead. I personally performed a history, physical exam, medical decision making, and confirmed accuracy of information the transcribed note. ED Course: I reviewed the patient's past medical records, patient was here for the same complaint in September 2016. I attempted to remove the patient's catheter myself, but was unsuccessful. I deflated balloon and provided gentle manual traction. Catheter will not budge however, so balloon reinflated and procedure aborted to avoid causing harm. Urology was paged. The patient is followed by Dr. Vines for vesicovaginal fistula. 0730: I consulted Dr. Vines. He was apparently in the OR at another hospital. I explained that this was his patient and that she required Urologic consultation here in the ED. He said that he has not seen this patient "for years" and that he was at another hospital all day and would not be able to consult on the patient. He recommended we consult whoever was administration professional for Urology. I asked him if there was anyone administration professional for his practice and he replied no, and that he would be unable to come to [facility] at any point today. 0755: I consulted Dr. Locke, Urology, he will call back with a plan for the patient. 1000: No word from Urology. 1200: Nurse spoke to Dr. Gilliland's PA, she tells me their team is currently in procedures and will not be able to come to the ED for many hours. 1220: Dr. Gilliland spoke to the nurse, and apparently recommends placing a Yao catheter in the urethra as a temporizing measure as well as an ultrasound to see if cath balloon is deflated, then have the patient home to followup with Dr. Vines, her urologist. 1320: Nursing staff was unable to place Yao catheter. I spoke to MARK Okeefe for Dr. Gilliland, myself and explained the patient's living situation and difficulty contacting Dr. Vines. I asked her to come evaluate the patient in the ED and she kindly agreed. 1340: Kesha Vieira is in the ED to assess the patient. 1400: Yao catheter in place. Kesha recommends patient followup with Dr. Vines within the next week. Given patient's disabillities and difficulty arranging follow-up herself, I spoke to Norma Rivera from case management. She spoke to someone at [facility] to help ensure that the patient follows up with Dr. Vines's office. At this point the patient is being discharged with a non-functioning suprapubic catheter in place, as well as a urethral Yao, which is flowing well. - Data Points Imaging Results: Imaging Impressions Pelvic/Renal Ultrasound 12/29/16 12:17 Impression: Deflated balloon of suprapubic catheter. The tip of the catheter is present in the anterior wall of the urinary bladder. Findings discussed with Emergency Department physician, Dr. Max Ball, at 1300 hours 12/29/2016. Imaging: Discussed imaging studies w/ vice president of talent management Radiologist General Initial Vital Signs: Initial Vital Signs Temperature (C) 36.4 C 12/29/16 07:19 Heart Rate 81 12/29/16 07:19 Respiratory Rate 16 12/29/16 07:19 Blood Pressure 127/86 H 12/29/16 07:19 O2 Sat (%) 97 12/29/16 07:19 O2 Delivery Mode Room Air Allergies/Adverse Reactions: amantadine HCl [From Symmetrel] Allergy (Verified 05/05/16 06:37) baclofen [Baclofen] Allergy (Verified 05/05/16 06:37) codeine [Codeine] Allergy (Verified 05/05/16 06:37) Penicillins Allergy (Verified 05/05/16 06:37) phenytoin sodium [From Dilantin] Allergy (Verified 05/05/16 06:37) phenytoin sodium extended [From Dilantin] Allergy (Verified 05/05/16 06:37) piperacillin sodium [From Zosyn] Allergy (Verified 05/05/16 06:37) rimantadine HCl [From Flumadine] Allergy (Verified 05/05/16 06:37) tazobactam sodium [From Zosyn] Allergy (Verified 05/05/16 06:37) Home Medications: Medication Instructions Recorded Calcium Polycarbophil [FIBERCON] 625 mg TUBE HS 05/10/15 Cholecalciferol Vit D3 [Vitamin D3 50,000 unit TUBE Q15D 05/10/15 (*)] Herbals/Supplements -Info Only 1 ea TUBE DAILY 05/10/15 Hydrocodone/Acetaminophen [[place] 0.5 tab TUBE ,05/10/15 5/325 (*)] Hydrocodone/Acetaminophen [[place] 1 tab TUBE DAILY 05/10/15 5/325 (*)] Metoprolol Tartrate [Lopressor 25 25 mg TUBE BID 05/10/15 mg (*)] Omeprazole [Prilosec 20 mg] 20 mg TUBE DAILY 05/10/15 carBAMazepine [TEGretol (*)] 100 mg TUBE 08,12 05/10/15 carBAMazepine [TEGretol (*)] 200 mg TUBE HS 05/10/15 clonazePAM [Klonopin (*)] 0.25 mg TUBE Q12 05/10/15 traZODone [traZODONE 50MG (*)] 50 mg TUBE HS PRN 05/10/15 Acetic Acid Irr Soln 0.25% 60 ml IRR MWF 10/20/15 Bisacodyl [Dulcolax] 10 mg RC DAILY PRN 10/20/15 Mag Hydrox/Al Hydrox/Simeth 30 ml TUBE TID PRN 10/20/15 [Maalox Maximum Strength Suspension] Magnesium Hydroxide [Milk of 30 ml TUBE DAILY PRN 10/20/15 Magnesia (*)] Menthol [Icy Hot Naturals] 1 tremaine TP PRN PRN 10/20/15 Prochlorperazine Maleate 10 mg TUBE Q6 PRN 10/20/15 [Compazine 10mg (*)] Prochlorperazine Maleate 25 mg [place] Q12 PRN 10/20/15 [Compazine 25mg supp (*)] Acetaminophen [Tylenol 325mg (*)] 650 mg TUBE Q4 PRN #0 tab 10/23/15 Escitalopram Oxalate [Lexapro 10 10 mg TUBE HS 09/17/16 MG] Hydrocodone/APAP 5/325 [[place] 0.5 each TUBE Q4 PRN 09/17/16 5/325 (*)] Multivitamins W-Minerals [Thera M 1 each TUBE DAILY 09/17/16 Plus Tablet (*)] Solifenacin Succinate [Vesicare 5 5 mg TUBE DAILY 09/17/16 MG (*)] guaiFENesin [Tussin] 100 mg TUBE Q6 PRN 09/17/16 Departure - Departure Disposition: Home, Routine, Self-Care Clinical Impression: Suprapubic catheter dysfunction Condition: Good Instructions: How to Care for Your Suprapubic Catheter (ED) Additional Instructions: Please followup with Dr. Vines within the next week to have your suprapubic catheter and Yao catheter assessed. Keep current catheter in place until seen by Dr. Vines. Referrals: COLT PRIETO [Primary Care Provider] - As per Instructions John Vines MD [Medical Doctor] - 2-3 days, call for appt. Report Scribed for: Max Ball Report Scribed by: Jacqueline Dowell Date of Report: 12/29/16 Time of Report: 07:09
[2016-12-29 07:24] VITALS: RESP 16
[2016-12-29] MEDS ORDERED: LIDOCAINE 2% JELLY 20 ML (UROJECT) ONE (12:31)
[2016-12-29 16:42] VITALS: PULSE 80; O2SAT 98
[2016-12-29 16:44] VITALS: BP 127/70; TEMP 98.2
--- NOTE | 2016-12-29 17:55 | GCON ---
[f rep st] CONSULTATION DATE OF CONSULTATION: 12/29/2016 DATE OF EMERGENCY ROOM VISIT: 12/29/2016. REASON FOR CONSULTATION: Urinary retention. HISTORY OF PRESENT ILLNESS: This is a 56-year-old female, who has been recently seen by Dr. Vines i n the [facility] and presents with recurrent issues with her suprapubic catheter being blocked despite being flushed in the emergency room. Unable to get urine flowing through the catheter again. [facility] room physician was unable to dislodge catheter, and I was requested to help place a Yao cath eter myself, which was done without difficulty. REVIEW OF SYSTEMS: A 10-point review of systems negative except as mentioned in HPI, with the addit ion of leg pain. PAST MEDICAL HISTORY: Depressive disorder, CVA, seizures, hypertension, hemorrhage, dysphasia, dysp hagia, dysarthria, dementia, constipation, iron-deficiency anemia, migraines, vitamin D, neurogenic bladder. SOCIAL HISTORY: Resides at [facility]. PHYSICAL EXAMINATION: GENERAL: This patient is alert and oriented, in no obvious distress. VITAL SIGNS: 126/74 is her blood pressure, heart rate 84, respires 16, O2 94 on room air. GENERAL: This is a thin female, in no acute distress. HEENT: Normocephalic, atraumatic. Extraocular movements intact. NECK: Supple. No lymphadenopathy. Trachea midline. LUNGS: No respiratory accessory mus brennen use. CARDIAC: Regular rate and rhythm. No obvious JVD. No lower extremity edema. GI: Abdom en was soft, nondistended. No tenderness to palpation. : No CVA tenderness. No bladder distent ion. Suprapubic catheter in place, not draining urine. No sign of infection around suprapubic cath eter. Vaginal exam: Normal vaginal anatomy with white mucosal discharge and perhaps a vaginal poly p. Urethra was normal. INTEGUMENT: No obvious rashes or lesions. MUSCULOSKELETAL: Patient supin e and not moving extremities on her own. NEURO: Difficult to assess patient's cognitive status. LABORATORY DATA: No labs available. Reports she did have an ultrasound of her bladder, which showe d deflated balloon of suprapubic catheter. ASSESSMENT AND PLAN: Urinary retention. Yao catheter was placed by myself as mentioned. This pa tient has been previously seen and evaluated by Dr. Vines and is to be followed by him in an outpati ent setting, where according to his previous note she was to have a cystoscopy in his office. Recom mend that this be completed. Also recommend that she be seen for replacement or removal of her supr apubic catheter by his office. This was also discussed with the emergency room physician, Dr. Basia valdes. /[id number]/MODL
== END 2016-12-29 16:43 | disposition home or self-care (01) ==
LOC: EDUNIT#
PROC: 0T9B70Z Drainage of Bladder with Drainage Device, Via Natural or Artificial Opening (ICD-10-PCS; principal; 2016-12-29)
DX: T83.091A Other mechanical complication of indwelling urethral catheter, initial encounter (principal); I10 Essential (primary) hypertension; Z86.73 Personal history of transient ischemic attack (TIA), and cerebral infarction without residual deficits; Y73.2 Prosthetic and other implants, materials and accessory gastroenterology and urology devices associated with adverse incidents

== ENCOUNTER 2017-01-22 05:48 | Emergency (ER) | payer OTHER, MEDICAID ==
--- NOTE | 2017-01-22 05:55 | EDPHY ---
H & P HPI/ROS: HPI CHIEF COMPLAINT: Peg tube replacement, peg tube fell out HISTORY OF PRESENT ILLNESS: Patient 56-year-old female she presents emergency room by EMS from [facility], she presents as her PEG tube fell out sometime this morning. She otherwise has no complaints. She is at her mental status baseline. She has a PEG tube due to history of CVA with dysphagia, seizure disorder. Past Medical History: Seizure disorder, neurogenic bladder, CVA, hyponatremia, type 2 diabetes, peg to Past Surgical History: Peg tube Social History: Resides at [facility] Family History: Noncontributory ROS REVIEW OF SYSTEMS: A comprehensive 10 point review of systems is otherwise negative aside from elements mentioned in the history of present illness. Exam Constitutional triage nursing summary reviewed, vital signs reviewed, awake/ alert. Eyes normal conjunctivae and sclera, EOMI, PERRLA. HENT normal inspection, atraumatic, moist mucus membranes, no epistaxis, neck supple/ no meningismus, no raccoon eyes. Respiratory clear to auscultation bilaterally, normal breath sounds, no respiratory distress, no wheezing. Cardiovascular rate normal, regular rhythm, no murmur, no edema, distal pulses normal. Gastrointestinal PEG tube site present, no significant excoriation, soft, non- tender, no rebound, no guarding, normal bowel sounds, no distension, no pulsatile mass. Genitourinary no CVA tenderness. Musculoskeletal no midline vertebral tenderness, full range of motion, no calf swelling, no tenderness of extremities, no meningismus, good pulses, neurovascularly intact. Skin pink, warm, & dry, no rash, skin atraumatic. Neurologic awake, alert and oriented x 3, AAOx3, moves all 4 extremities equally, motor intact, sensory intact, CN II-XII intact, normal cerebellar, normal vision, normal speech. Psychiatric normal mood/affect. Heme/Lymph/Immune no lymphadenopathy. Differential Diagnosis: includes but is not limited to in a particular order need for PEG tube exchange, need for replacement of PEG tube. Medical Decision Making: Plan for this patient will get the appropriate size PEG tube from OR and then place PEG tube in appropriate position. Re-evaluation: 0601AM: A 20 [place] PEG tube was placed by myself. She tolerated this very well. It easily slid into the PEG tube tract. There was gastric contents aspirated from this. No complications. The PEG tube was appropriately seal to the abdominal wall with the balloon inflated and the stopper pushed to the abdominal wall. She can now be discharged back to [facility]. Gastric contents were aspirated from the PEG tube. Source: Patient, EMS - Medical/Surgical History Hx Asthma: No Hx Chronic Respiratory Disease: No Hx Diabetes: No Hx Cardiac Disease: Yes Hx Renal Disease: No Hx Cirrhosis: No Hx Alcoholism: No Hx HIV/AIDS: No Hx Splenectomy or Spleen Trauma: No Other PMH: depressive disorder, CVA, Seizures, HTN, intracerebral hemorrhage, dysphagia, dysarthia, dementia, gait abnormality, constipation, iron deficiency anemia, migraines, vitamin D deficiency, neurogenic bladder and bowel - Social History Smoking Status: Never smoked Allergies/Adverse Reactions: amantadine HCl [From Symmetrel] Allergy (Verified 05/05/16 06:37) baclofen [Baclofen] Allergy (Verified 05/05/16 06:37) codeine [Codeine] Allergy (Verified 05/05/16 06:37) Penicillins Allergy (Verified 05/05/16 06:37) phenytoin sodium [From Dilantin] Allergy (Verified 05/05/16 06:37) phenytoin sodium extended [From Dilantin] Allergy (Verified 05/05/16 06:37) piperacillin sodium [From Zosyn] Allergy (Verified 05/05/16 06:37) rimantadine HCl [From Flumadine] Allergy (Verified 05/05/16 06:37) tazobactam sodium [From Zosyn] Allergy (Verified 05/05/16 06:37) Home Medications: Medication Instructions Recorded Calcium Polycarbophil [FIBERCON] 625 mg TUBE HS 05/10/15 Cholecalciferol Vit D3 [Vitamin D3 50,000 unit TUBE Q15D 05/10/15 (*)] Herbals/Supplements -Info Only 1 ea TUBE DAILY 05/10/15 Hydrocodone/Acetaminophen [[place] 0.5 tab TUBE 19 05/10/15 5/325 (*)] Hydrocodone/Acetaminophen [[place] 1 tab TUBE DAILY 05/10/15 5/325 (*)] Metoprolol Tartrate [Lopressor 25 25 mg TUBE BID 05/10/15 mg (*)] Omeprazole [Prilosec 20 mg] 20 mg TUBE DAILY 05/10/15 carBAMazepine [TEGretol (*)] 100 mg TUBE 08,12 05/10/15 carBAMazepine [TEGretol (*)] 200 mg TUBE HS 05/10/15 clonazePAM [Klonopin (*)] 0.25 mg TUBE Q12 05/10/15 traZODone [traZODONE 50MG (*)] 50 mg TUBE HS PRN 05/10/15 Acetic Acid Irr Soln 0.25% 60 ml IRR MWF 10/20/15 Bisacodyl [Dulcolax] 10 mg RC DAILY PRN 10/20/15 Mag Hydrox/Al Hydrox/Simeth 30 ml TUBE TID PRN 10/20/15 [Maalox Maximum Strength Suspension] Magnesium Hydroxide [Milk of 30 ml TUBE DAILY PRN 10/20/15 Magnesia (*)] Menthol [Icy Hot Naturals] 1 tremaine TP PRN PRN 10/20/15 Prochlorperazine Maleate 10 mg TUBE Q6 PRN 10/20/15 [Compazine 10mg (*)] Prochlorperazine Maleate 25 mg [place] Q12 PRN 10/20/15 [Compazine 25mg supp (*)] Acetaminophen [Tylenol 325mg (*)] 650 mg TUBE Q4 PRN #0 tab 10/23/15 Escitalopram Oxalate [Lexapro 10 10 mg TUBE HS 09/17/16 MG] Hydrocodone/APAP 5/325 [[place] 0.5 each TUBE Q4 PRN 09/17/16 5/325 (*)] Multivitamins W-Minerals [Thera M 1 each TUBE DAILY 09/17/16 Plus Tablet (*)] Solifenacin Succinate [Vesicare 5 5 mg TUBE DAILY 09/17/16 MG (*)] guaiFENesin [Tussin] 100 mg TUBE Q6 PRN 09/17/16 Departure - Departure Disposition: Home, Routine, Self-Care Clinical Impression: S/P percutaneous endoscopic gastrostomy (PEG) tube placement Condition: Good Instructions: How to Use and Care for Your PEG Tube (ED) Referrals: COLT PRIETO [Primary Care Provider] - As per Instructions
[2017-01-22 06:09] VITALS: BP 122/88; PULSE 66; RESP 16; TEMP 97.5; O2SAT 98
== END 2017-01-22 06:20 | disposition home or self-care (01) ==
LOC: EDUNIT#
PROC: 0DH63UZ Insertion of Feeding Device into Stomach, Percutaneous Approach (ICD-10-PCS; principal; 2017-01-22)
DX: K94.23 Gastrostomy malfunction (principal); E11.9 Type 2 diabetes mellitus without complications; I10 Essential (primary) hypertension; Z86.73 Personal history of transient ischemic attack (TIA), and cerebral infarction without residual deficits

== ENCOUNTER 2017-06-22 19:09 | Emergency (ER) | payer OTHER, MEDICAID ==
--- NOTE | 2017-06-22 19:18 | EDPHY ---
H & P HPI/ROS: Chief Complaint: G-tube out HPI: 56-year-old patient [facility] after pulling out her gastrostomy tube. Staff replaced it with a smaller tube in Center for evaluation. She has had her G-tube in place for the out 6 months. No nausea or vomiting. No pain. ROS: 10 point Review of Systems is negative except as noted in the HPI. Physical Exam: General: Awake, alert, no acute distress Abdomen: Patient has a G-tube site without discharge or erythema. There is a gastrostomy tube in place which is significantly smaller than the orifice. Skin: No rash - Medical/Surgical History Hx Asthma: No Hx Chronic Respiratory Disease: No Hx Diabetes: No Hx Cardiac Disease: Yes Hx Renal Disease: No Hx Cirrhosis: No Hx Alcoholism: No Hx HIV/AIDS: No Hx Splenectomy or Spleen Trauma: No Other PMH: depressive disorder, CVA, Seizures, HTN, intracerebral hemorrhage, dysphagia, dysarthia, dementia, gait abnormality, constipation, iron deficiency anemia, migraines, vitamin D deficiency, neurogenic bladder and bowel - Social History Smoking Status: Never smoked Allergies/Adverse Reactions: amantadine HCl [From Symmetrel] Allergy (Verified 01/22/17 06:07) baclofen [Baclofen] Allergy (Verified 01/22/17 06:07) codeine [Codeine] Allergy (Verified 01/22/17 06:07) Penicillins Allergy (Verified 01/22/17 06:07) phenytoin sodium [From Dilantin] Allergy (Verified 01/22/17 06:07) phenytoin sodium extended [From Dilantin] Allergy (Verified 01/22/17 06:07) piperacillin sodium [From Zosyn] Allergy (Verified 01/22/17 06:07) rimantadine HCl [From Flumadine] Allergy (Verified 01/22/17 06:07) tazobactam sodium [From Zosyn] Allergy (Verified 01/22/17 06:07) Home Medications: Medication Instructions Recorded Calcium Polycarbophil [FIBERCON] 625 mg TUBE HS 05/10/15 Cholecalciferol Vit D3 [Vitamin D3 50,000 unit TUBE Q15D 05/10/15 (*)] Herbals/Supplements -Info Only 1 ea TUBE DAILY 05/10/15 Hydrocodone/Acetaminophen [[place] 0.5 tab TUBE 05/10/15 5/325 (*)] Hydrocodone/Acetaminophen [[place] 1 tab TUBE DAILY 05/10/15 5/325 (*)] Metoprolol Tartrate [Lopressor 25 25 mg TUBE BID 05/10/15 mg (*)] Omeprazole [Prilosec 20 mg] 20 mg TUBE DAILY 05/10/15 carBAMazepine [TEGretol (*)] 100 mg TUBE 08,12 05/10/15 carBAMazepine [TEGretol (*)] 200 mg TUBE HS 05/10/15 clonazePAM [Klonopin (*)] 0.25 mg TUBE Q12 05/10/15 traZODone [traZODONE 50MG (*)] 50 mg TUBE HS PRN 05/10/15 Acetic Acid Irr Soln 0.25% 60 ml IRR MWF 10/20/15 Bisacodyl [Dulcolax] 10 mg RC DAILY PRN 10/20/15 Mag Hydrox/Al Hydrox/Simeth 30 ml TUBE TID PRN 10/20/15 [Maalox Maximum Strength Suspension] Magnesium Hydroxide [Milk of 30 ml TUBE DAILY PRN 10/20/15 Magnesia (*)] Menthol [Icy Hot Naturals] 1 tremaine TP PRN PRN 10/20/15 Prochlorperazine Maleate 10 mg TUBE Q6 PRN 10/20/15 [Compazine 10mg (*)] Prochlorperazine Maleate 25 mg GA Q12 PRN 10/20/15 [Compazine 25mg supp (*)] Acetaminophen [Tylenol 325mg (*)] 650 mg TUBE Q4 PRN #0 tab 10/23/15 Escitalopram Oxalate [Lexapro 10 10 mg TUBE HS 09/17/16 MG] Hydrocodone/APAP 5/325 [[place] 0.5 each TUBE Q4 PRN 09/17/16 5/325 (*)] Multivitamins W-Minerals [Thera M 1 each TUBE DAILY 09/17/16 Plus Tablet (*)] Solifenacin Succinate [Vesicare 5 5 mg TUBE DAILY 09/17/16 MG (*)] guaiFENesin [Tussin] 100 mg TUBE Q6 PRN 09/17/16 Medical Decision Making ED Course/Re-evaluation: Procedure: G tube replacement. After confirming that the tube was out I replaced the G tube using a 20 German G tube. After placing the tube I confirmed adequate placement by aspiration of gastric contents. There were no complications. The procedure was performed by myself. Departure - Departure Disposition: Home, Routine, Self-Care Clinical Impression: Gastrostomy tube dysfunction Condition: Good Instructions: Percutaneous Endoscopic Gastrostomy Insertion (DC) Additional Instructions: Return emergency department for increasing abdominal pain, nausea, vomiting, fevers, chills, or any other concerns. Referrals: Patient,NotPresent [Unknown] - As per Instructions
[2017-06-22 19:25] VITALS: BP 130/92; PULSE 78; RESP 18; TEMP 98.2; O2SAT 97
== END 2017-06-22 19:26 | disposition home or self-care (01) ==
LOC: EDUNIT#
PROC: 0DH63UZ Insertion of Feeding Device into Stomach, Percutaneous Approach (ICD-10-PCS; principal; 2017-06-22)
DX: K94.23 Gastrostomy malfunction (principal); I10 Essential (primary) hypertension

== ENCOUNTER 2018-03-27 07:06 | Emergency (ER) | payer OTHER, MEDICAID ==
--- NOTE | 2018-03-27 07:26 | EDPHY ---
H & P Stated Complaint: Clogged feeding tube. Time Seen by Provider: 03/27/18 07:20 HPI/ROS: CHIEF COMPLAINT: Joel feeding to HISTORY OF PRESENT ILLNESS: Patient is a 57-year-old female with a history of stroke during childbirth several years ago. She resides at [facility]. Today they found that her feeding tube was clogged and she could not received her morning medications. She takes a antiepileptics and anti depressants well as pain medications. They sent her here for us to manage the clock to it. The patient has no complaints. No fever. No vomiting. Severity: Moderate Modifying factors: None REVIEW OF SYSTEMS: Constitutional: denies: chills, fever, recent illness, recent injury EENTM: Baseline Respiratory: denies: cough, shortness of breath Cardiac: denies: chest pain, irregular heart rate, lightheadedness, palpitations Gastrointestinal/Abdominal: denies: abdominal pain, diarrhea, nausea, vomiting, blood streaked stools Genitourinary: denies: dysuria, frequency, hematuria, pain Musculoskeletal: Baseline Skin: denies: lesions, rash, jaundice, bruising Neurological: Baseline Hematologic/Lymphatic: denies: blood clots, easy bleeding, easy bruising Immunologic/allergic: denies: HIV/AIDS, transplant 10 systems reviewed and negative except as noted EXAM: GENERAL: well-nourished and in no acute distress. HEAD: Atraumatic, normocephalic. EYES: Dysconjugate a baseline, sclera anicteric, conjunctiva are normal. ENT: nares patent, oropharynx clear without exudates. Moist mucous membranes. NECK: Normal range of motion, supple without lymphadenopathy or JVD. LUNGS: Breath sounds clear to auscultation bilaterally and equal. No wheezes rales or rhonchi. HEART: Regular rate and rhythm without murmurs, rubs or gallops. ABDOMEN: G-tube in place, no erythema or leakage. Soft, nontender, normoactive bowel sounds. No guarding, no rebound. No masses appreciated. BACK: No CVA tenderness, no spinal tenderness, step-offs or deformities EXTREMITIES: Appears to have contractures prep baseline NEUROLOGICAL: Answers questions appropriately. Non ambulatory. movement in all extremities, normal sensation, normal reflexes PSYCH: Normal mood, normal affect. SKIN: Warm, dry, normal turgor, no visible rashes or lesions. Source: Patient Exam Limitations: No limitations - Personal History Current Tetanus Diphtheria and Acellular Pertussis (TDAP): Unsure - Medical/Surgical History Hx Asthma: No Hx Chronic Respiratory Disease: No Hx Diabetes: No Hx Cardiac Disease: Yes Hx Renal Disease: No Hx Cirrhosis: No Hx Alcoholism: No Hx HIV/AIDS: No Hx Splenectomy or Spleen Trauma: No Other PMH: depressive disorder, CVA, Seizures, HTN, intracerebral hemorrhage, dysphagia, dysarthia, dementia, gait abnormality, constipation, iron deficiency anemia, migraines, vitamin D deficiency, neurogenic bladder and bowel - Social History Smoking Status: Never smoked Constitutional: Initial Vital Signs Temperature (C) 36.6 C 03/27/18 07:10 Heart Rate 69 03/27/18 07:10 Respiratory Rate 14 03/27/18 07:10 Blood Pressure 136/83 H 03/27/18 07:10 O2 Sat (%) 94 03/27/18 07:10 O2 Delivery Mode Room Air Allergies/Adverse Reactions: amantadine HCl [From Symmetrel] Allergy (Verified 01/22/17 06:07) baclofen [Baclofen] Allergy (Verified 01/22/17 06:07) codeine [Codeine] Allergy (Verified 01/22/17 06:07) Penicillins Allergy (Verified 01/22/17 06:07) phenytoin sodium [From Dilantin] Allergy (Verified 01/22/17 06:07) phenytoin sodium extended [From Dilantin] Allergy (Verified 01/22/17 06:07) piperacillin sodium [From Zosyn] Allergy (Verified 01/22/17 06:07) rimantadine HCl [From Flumadine] Allergy (Verified 01/22/17 06:07) tazobactam sodium [From Zosyn] Allergy (Verified 01/22/17 06:07) Home Medications: Medication Instructions Recorded Calcium Polycarbophil [FIBERCON] 625 mg TUBE HS 05/10/15 Cholecalciferol Vit D3 [Vitamin D3 50,000 unit TUBE Q15D 05/10/15 (*)] Herbals/Supplements -Info Only 1 ea TUBE DAILY 05/10/15 Hydrocodone/Acetaminophen [[place] 0.5 tab TUBE 13,19 05/10/15 5/325 (*)] Hydrocodone/Acetaminophen [[place] 1 tab TUBE DAILY 05/10/15 5/325 (*)] Metoprolol Tartrate [Lopressor 25 25 mg TUBE BID 05/10/15 mg (*)] Omeprazole [Prilosec 20 mg] 20 mg TUBE DAILY 05/10/15 carBAMazepine [TEGretol (*)] 100 mg TUBE 08,12 05/10/15 carBAMazepine [TEGretol (*)] 200 mg TUBE HS 05/10/15 clonazePAM [Klonopin (*)] 0.25 mg TUBE Q12 05/10/15 traZODone [traZODONE 50MG (*)] 50 mg TUBE HS PRN 05/10/15 Acetic Acid Irr Soln 0.25% 60 ml IRR MWF 10/20/15 Bisacodyl [Dulcolax] 10 mg RC DAILY PRN 10/20/15 Mag Hydrox/Al Hydrox/Simeth 30 ml TUBE TID PRN 10/20/15 [Maalox Maximum Strength Suspension] Magnesium Hydroxide [Milk of 30 ml TUBE DAILY PRN 10/20/15 Magnesia (*)] Menthol [Icy Hot Naturals] 1 tremaine TP PRN PRN 10/20/15 Prochlorperazine Maleate 10 mg TUBE Q6 PRN 10/20/15 [Compazine 10mg (*)] Prochlorperazine Maleate 25 mg [place] Q12 PRN 10/20/15 [Compazine 25mg supp (*)] Acetaminophen [Tylenol 325mg (*)] 650 mg TUBE Q4 PRN #0 tab 10/23/15 Escitalopram Oxalate [Lexapro 10 10 mg TUBE HS 09/17/16 MG] Hydrocodone/APAP 5/325 [[place] 0.5 each TUBE Q4 PRN 09/17/16 5/325 (*)] Multivitamins W-Minerals [Thera M 1 each TUBE DAILY 09/17/16 Plus Tablet (*)] Solifenacin Succinate [Vesicare 5 5 mg TUBE DAILY 09/17/16 MG (*)] guaiFENesin [Tussin] 100 mg TUBE Q6 PRN 09/17/16 Medical Decision Making Procedures: I removed the patient's feeding tube and replaced it with a new 1. It is able to flush easy. Some gastric content is also able to be pulled back out. I will send her for x-ray. ED Course/Re-evaluation: 10:15 a.m. the patient's feeding tube is in good placement. We will discharge her. She is tolerating flashes. We discussed indications for returning. Differential Diagnosis: Partial list of the Differential diagnosis considered include but were not limited to; G-tube malfunction and although unlikely based on the history and physical exam, I also considered displacement, infection, obstruction. Departure - Departure Disposition: Home, Routine, Self-Care Clinical Impression: Gastrostomy tube dysfunction Condition: Fair Instructions: Percutaneous Endoscopic Gastrostomy Insertion in Children (DC) Referrals: COLT PRIETO [Primary Care Provider] - As per Instructions
[2018-03-27 11:00] VITALS: BP 123/80
== END 2018-03-27 11:00 | disposition home or self-care (01) ==
LOC: EDUNIT#
DX: Z43.1 Encounter for attention to gastrostomy (principal)

== ENCOUNTER 2018-11-23 20:21 | Emergency (ER) | payer OTHER, MEDICAID | END 2018-11-23 21:49 | disposition home or self-care (01) ==

== ENCOUNTER 2018-11-25 08:24 | Emergency (ER) | payer OTHER, MEDICAID | END 2018-11-25 13:57 | disposition home or self-care (01) ==

== ENCOUNTER 2018-12-15 04:30 | Emergency (ER) | payer OTHER, MEDICAID | END 2018-12-15 06:57 | disposition home or self-care (01) ==